=== PATIENT | male | born 1955 | race Caucasian/White ===

== ENCOUNTER 2016-10-10 22:40 | Emergency (ER) | payer MEDICARE, OTHER ==
--- NOTE | ~2016-10-10 | EKG ---
PATIENT: SIVAKUMAR RUBIO UNIT #: [id number] Ventricular Rate: 64 BPM Atrial Rate: 66 BPM P-R Interval: 124 ms QRS Duration: 90 ms Q-T Interval: 400 ms QTC Calculation(Bezet): 412 ms P [place]: 35 degrees Calculated R [place]: 48 degrees Calculated T [place]: 55 degrees Diagnosis Line: Sinus rhythm Baseline wander Diagnosis Line: Otherwise normal ECG Diagnosis Line: When compared with ECG of 15-APR-2016 13:36, Diagnosis Line: Junctional rhythm has replaced Sinus rhythm Diagnosis Line: T wave amplitude has decreased in Anterior leads Diagnosis Line: Confirmed by RUSSELL REYES MD ([id number]) on 10/15/2016 Diagnosis Line: 5:33:56 PM INTERPRETING MD: ERIC FROST
--- NOTE | ~2016-10-10 | CR72 ---
[facility]. [facility] A Service of [facility] RADIOLOGY TEXT RESULTS PATIENT: SIVAKUMAR RUBIO LOCATION: SED : 57 UNIT #: [id number] AGE: [address]: Nuno Barron MD SEX: M ORDER DR: [id number] [place] [id number] E MR#: [id number] Acc #: [id number] NAME: SIVAKUMAR RUBIO : 1955 SEX: M STUDY DATE/TIME: 10/10/2016 23:02 UNIT: SED ROOM: STUDY DESCRIPTION: CR Chest Single View Portable Attending Physician: Nuno Barron M.D. Ordering Physician: Nuno Barron M.D. Primary Care Physician: Francisco Javier Pascual M.D. MEDICAL IMAGING REPORT This report is preliminary unless electronic signature is present. EXAM Portable chest, 10/10 at 23:02 INDICATION Weakness, shortness of air, cough and heart palpitations for 3 days. History of hypertension. COMPARISON 06/07/2013 FINDINGS A single AP portable view of the chest shows both lungs to be clear. The heart is normal in size. The mediastinal contour is normal. No significant bone abnormalities are seen. IMPRESSION Normal portable chest. Dictated by... Ritesh Castaneda Jr., M.D. THIS IS AN ELECTRONICALLY VERIFIED REPORT Ritesh Castaneda Jr., M.D. at 10/11/2016 9:31 PM IRA/morgan TD: 10/11/2016 15:24 JOB #: [id number] MEDICAL IMAGING REPORT
[2016-10-10 22:34] LABS: BASOPHIL% 0.6 % (0-2.5); EOSINOPHIL# 0.3 X10e3 (0-0.7); HEMATOCRIT 39.6 % (38.0-50.0); HEMOGLOBIN 13.2 gm/dL (13.0-16.0); LYMPHOCYTE# 0.7 X10e3 (1.0-3.5); LYMPHOCYTE% 11.8 % (17.0-45.0); MEAN CELL VOLUME 91.3 FL (83-96); MEAN CORPUSCULAR HEMOGLOBIN 30.5 PG (28-34); MEAN CORPUSCULAR HGB CONC 33.4 g/dL (30-36); MEAN PLATELET VOLUME 6.5 FL (6.5-11.5); MONOCYTE# 0.5 X10e3 (0-1.0); MONOCYTE% 8.7 % (3.0-12.0); NEUTROPHIL# 4.5 X10e3 (1.5-7.1); NEUTROPHIL% 73.9 % (40-75); PLATELET COUNT 243 X10e3 (140-420); RED BLOOD COUNT 4.34 X10e (3.90-5.60); WHITE BLOOD COUNT 6.1 X10e3 (4.0-10.5)
[2016-10-10 22:37] LABS: DIFF IND NO
[~2016-10-10 22:40] MED LIST: ALBUTEROL MININEB INH; ALBUTEROL17 GM INH; ANTI-DIARRHEAL2 M1 PO; ASPIRIN EC81 M1 PO; ASPIRIN81 M1 PO; ASPIRIN81 M2 PO; ASPIRIN81 MG; ASPIRIN81 MG PO; ATIVAN; ATIVAN PO; ATIVAN2 M1 PO; ATIVAN2 MG PO; ATORVASTATIN CA80 MG PO; ATROVENT15 ML; CALCIUM CITRAT250 MG PO; CIPRO PO; CLARITIN10 MG; CLARITIN10 MG PO; CLOPIDOGREL BIS75 MG PO; CLOPIDOGREL75 MG PO; FLAGYL PO; FLONASE 0.05% N16 G1; FLONASE16 GM; HCTZ; IMDUR-ER30 MG PO; K-DUR20 ME1 PO; KCL PO; KLONOPIN1 M1 PO; KLONOPIN1 MG; KLONOPIN1 MG PO; LANSOPRAZOLE30 M2 PO; LEVAQUIN PO; LIPITOR80 MG PO; NASONEX17 GM; PAXIL PO; PEPCID AC20 M2 PO; PHENERGAN25 MG PO; PREVACID PO; PRILOSEC PO; PRILOSEC20 MG PO; PROAIR HFA8.5 GM; PROPRANOLOL HCL10 MG PO; PROPRANOLOL PO; RANITIDINE HCL150 M1 PO; REGLAN10 MG PO; SKELAXIN PO; SPIRIVA18 MCG; SPIRIVA18 MCG INH; TAGAMET; TOPAMAX; TOPAMAX PO; TOPAMAX25 MG; TOPAMAX25 MG PO; ULTRAM PO; ZESTRIL10 M2 PO
[2016-10-10 22:41] LABS: POC - CKMB 3.8 ng/mL (0.0-7.9); POC - TROPONIN <0.05 ng/mL (<=0.05)
[2016-10-10 22:44] LABS: INR 1.1; PROTHROMBIN TIME (PATIENT) 12.4 SECONDS (9.5-12.4)
[2016-10-10 22:53] LABS: ALBUMIN SERUM 4.3 g/dL (3.5-5.0); BILIRUBIN, DIRECT 0.1 mg/dL (0.0-0.2); BILIRUBIN,INDIRECT 0.2 mg/dL (0.0-0.9); BILIRUBIN,TOTAL 0.3 mg/dL (0.2-2.0); CREATININE SERUM 1.3 mg/dL (0.6-1.4); GLOM FILT RATE Estimated 59.8 mL/min (>60); MAGNESIUM 1.7 mg/dL (1.6-3.0); POTASSIUM 3.8 mmol/L (3.5-5.1); PROTEIN TOTAL SERUM 7.4 g/dL (6.0-8.3)
== END 2016-10-11 00:53 | disposition home or self-care (01) ==
LOC: SED 22:40
PROVIDERS: Emergency Medicine
DX: K52.9 Noninfective gastroenteritis and colitis, unspecified (principal); E86.0 Dehydration; J44.9 Chronic obstructive pulmonary disease, unspecified; F41.9 Anxiety disorder, unspecified; F43.10 Post-traumatic stress disorder, unspecified
CPT/HCPCS: 36415; 71010; 80048; 80076; 82553; 83735; 83874; 84443; 84484; 85025; 85610; 85730; 93005; 99283; J2930

== ENCOUNTER → 2016-10-26 | Outpatient (CLI) | payer MEDICARE, OTHER ==
[2016-10-26 11:42] LABS: HEMATOCRIT 40.7 % (38.0-50.0); HEMOGLOBIN 13.5 gm/dL (13.0-16.0); MEAN CELL VOLUME 92.6 FL (83-96); MEAN CORPUSCULAR HEMOGLOBIN 30.6 PG (28-34); MEAN CORPUSCULAR HGB CONC 33.1 g/dL (30-36); MEAN PLATELET VOLUME 6.7 FL (6.5-11.5); RED BLOOD COUNT 4.4 X10e (3.90-5.60); RED CELL DISTRIBUTION WIDTH 14.2 % (11.0-15.5); WHITE BLOOD COUNT 4.6 X10e3 (4.0-10.5)
[2016-10-26 12:07] LABS: BLOOD UREA NITROGEN 17 mg/dL (9-23); BUN/CREATININE RATIO 14.16; CALCIUM SERUM 8.8 mg/dL (8.4-10.2); CARBON DIOXIDE 24 mmol/L (22-31); CHLORIDE 103 mmol/L (100-111); CREATININE SERUM 1.2 mg/dL (0.6-1.4); GLOM FILT RATE Estimated ABOVE60 mL/min (>60); GLUCOSE FASTING 80 mg/dL (70-110); POTASSIUM 3.6 mmol/L (3.5-5.1); SODIUM 134 mmol/L (135-145)
[2016-10-26 12:34] LABS: URINE APPEARANCE CLEAR; URINE BILIRUBIN NEG (NEG); URINE BLOOD NEG (NEG); URINE COLOR YELLOW; URINE GLUCOSE NEG (NORM); URINE KETONE NEG (NEG); URINE LEUKOCYTE ESTERASE NEG (NEG); URINE NITRATE NEG (NEG); URINE PH 5.5 (5-8); URINE PROTEIN NEG (NEG); URINE SPECIFIC GRAVITY 1.025 (1.003-1.035); URINE UROBILINOGEN 0.2 MG/DL (NORM)
[2016-10-26 12:38] LABS: MICRO INDICATED? NO
[2016-10-26 14:49] LABS: IRON SERUM 76 ug/dL (45-182); TOTAL IRON BINDING CAPACITY 250 ug/dL (252-460); TRANSFERRIN 179 mg/dL (180-329); TRANSFERRIN SATURATION 30 % (20-50)
[2016-10-26 14:57] LABS: CREATININE,RANDOM URINE 174 mg/dL; TOTAL PROTEIN,RANDOM URINE 36 mg/dl (<10)
== END | disposition home or self-care (01) ==
LOC: SLAB 11:10
PROVIDERS: Internal Medicine Nephrology
DX: N18.3 Chronic kidney disease, stage 3 (moderate) (principal)
CPT/HCPCS: 36415; 80048; 81003; 82570; 83540; 83550; 84156; 85027

== ENCOUNTER 2016-11-01 14:25 | Emergency (ER) | payer MEDICARE, OTHER ==
--- NOTE | ~2016-11-01 | CT4 ---
[facility] A Service of [facility] RADIOLOGY TEXT RESULTS PATIENT: SIVAKUMAR RUBIO LOCATION: SED : 57 UNIT #: [id number] AGE: [address]: Jose Alberto Flood MD SEX: M ORDER DR: [id number] [place] [id number] E MR#: [id number] Acc #: [id number] NAME: SIVAKUMAR RUBIO. : 1955 SEX: M STUDY DATE/TIME: 11/01/2016 15:18 UNIT: SED ROOM: STUDY DESCRIPTION: CT Abd and Pelv Wo Cont Attending Physician: Jose Alberto Flood M.D. Ordering Physician: Jose Alberto Flood M.D. Primary Care Physician: Francisco Javier Pascual M.D. MEDICAL IMAGING REPORT This report is preliminary unless electronic signature is present. EXAM CT abdomen and pelvis without contrast HISTORY 61-year-old male diffuse abdominal pain, diagnosed with colitis, 10/11/2016. Patient awaiting appointment now is out of [facility]. COMPARISON: CT abdomen and pelvis 09/02/[address] exam was performed with one or more of the following radiation dose reduction techniques: automatic exposure control, adjustment of mA and/or kV according to patient size, and iterative reconstruction. FINDINGS Axial images performed through the abdomen and pelvis without contrast. By report the patient is allergic to IV contrast. Multiplanar reconstructed images reviewed a workstation. Lung bases unremarkable except for a small granuloma left lower lobe. The liver, spleen appear normal. The gallbladder is not visualized and may be surgically absent. Pancreas and adrenal glands unremarkable. There is a right renal cortical atrophy. No mass or obstruction. No stone disease. Stomach, small bowel and colon unremarkable. No free air or free fluid. Small amount residual positive contrast noted in the appendix which appears normal. Retroperitoneum unremarkable. PELVIS: The bladder, prostate unremarkable. Osseous structures and soft tissues appear normal. 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 IMPRESSION [facility] A Service of [facility] RADIOLOGY TEXT RESULTS PATIENT: SIVAKUMAR RUBIO LOCATION: SED : 57 UNIT #: [id number] AGE: [address]: Jose Alberto Flood MD SEX: M ORDER DR: 1. No acute intraabdominal or intrapelvic pathology identified. In particular no findings to suggest active colitis. 2. Right renal cortical atrophy unchanged from prior studies. Dictated by... Ludwig Au M.D. THIS IS AN ELECTRONICALLY VERIFIED REPORT Ludwig Au M.D. at 11/02/2016 10:05 AM Kat TD: 11/02/2016 07:35 JOB #: [id number] MEDICAL IMAGING REPORT Page 1 of 1
--- NOTE | ~2016-11-01 | EKG ---
PATIENT: SIVAKUMAR RUBIO UNIT #: [id number] Ventricular Rate: 57 BPM Atrial Rate: 57 BPM P-R Interval: 128 ms QRS Duration: 96 ms Q-T Interval: 406 ms QTC Calculation(Bezet): 395 ms P [place]: 35 degrees Calculated R [place]: 55 degrees Calculated T [place]: 56 degrees Diagnosis Line: Sinus bradycardia Diagnosis Line: Otherwise normal ECG Diagnosis Line: When compared with ECG of 10-OCT-2016 22:26, Diagnosis Line: No significant change was found Diagnosis Line: Confirmed by RUSSELL REYES MD ([id number]) on 11/02/2016 Diagnosis Line: 11:12:37 PM INTERPRETING MD: ERIC FROST
[2016-11-01 15:15] LABS: BASOPHIL% 0.6 % (0-2.5); EOSINOPHIL# 0.4 X10e3 (0-0.7); EOSINOPHIL% 6.9 % (0.0-7.0); HEMATOCRIT 42.5 % (38.0-50.0); HEMOGLOBIN 14.4 gm/dL (13.0-16.0); LYMPHOCYTE# 1.1 X10e3 (1.0-3.5); LYMPHOCYTE% 19.2 % (17.0-45.0); MEAN CELL VOLUME 92.2 FL (83-96); MEAN CORPUSCULAR HEMOGLOBIN 31.2 PG (28-34); MEAN CORPUSCULAR HGB CONC 33.8 g/dL (30-36); MEAN PLATELET VOLUME 7.3 FL (6.5-11.5); MONOCYTE# 0.6 X10e3 (0-1.0); MONOCYTE% 11.6 % (3.0-12.0); NEUTROPHIL# 3.4 X10e3 (1.5-7.1); NEUTROPHIL% 61.7 % (40-75); PLATELET COUNT 248 X10e3 (140-420); RED BLOOD COUNT 4.61 X10e (3.90-5.60); RED CELL DISTRIBUTION WIDTH 13.7 % (11.0-15.5); WHITE BLOOD COUNT 5.5 X10e3 (4.0-10.5)
[2016-11-01 15:24] LABS: DIFF IND NO
[2016-11-01 15:26] LABS: ALBUMIN SERUM 4.2 g/dL (3.5-5.0); BILIRUBIN, DIRECT 0.1 mg/dL (0.0-0.2); BILIRUBIN,INDIRECT 0.4 mg/dL (0.0-0.9); BILIRUBIN,TOTAL 0.5 mg/dL (0.2-2.0); BUN/CREATININE RATIO 18.88; CALCIUM SERUM 9.3 mg/dL (8.4-10.2); CREATININE SERUM 1.8 mg/dL (0.6-1.4); POTASSIUM 3.6 mmol/L (3.5-5.1); PROTEIN TOTAL SERUM 8.3 g/dL (6.0-8.3)
[2016-11-01 16:01] LABS: URINE SOURCE CLEAN CATCH
[2016-11-01 16:02] LABS: URINE APPEARANCE CLEAR; URINE BILIRUBIN NEG (NEG); URINE BLOOD NEG (NEG); URINE COLOR YELLOW; URINE GLUCOSE NEG (NORM); URINE KETONE NEG (NEG); URINE LEUKOCYTE ESTERASE NEG (NEG); URINE NITRATE NEG (NEG); URINE PROTEIN 1+ (NEG); URINE SPECIFIC GRAVITY 1.025 (1.003-1.035); URINE UROBILINOGEN 0.2 MG/DL (NORM)
[2016-11-01 16:32] LABS: CULTURE INDICATED? NO; MICRO INDICATED? YES; URINE BACTERIA NEG (NEG); URINE RBC 0-2 /[HPF] (0-2); URINE WBC 0-2 /[HPF] (0-5)
== END 2016-11-01 19:48 | disposition home or self-care (01) ==
LOC: SED 14:25
PROVIDERS: Emergency Medicine
DX: R10.84 Generalized abdominal pain (principal); N28.9 Disorder of kidney and ureter, unspecified; R19.7 Diarrhea, unspecified; K21.9 Gastro-esophageal reflux disease without esophagitis; J44.9 Chronic obstructive pulmonary disease, unspecified; F17.200 Nicotine dependence, unspecified, uncomplicated; Z98.890 Other specified postprocedural states; Z88.5 Allergy status to narcotic agent; Z88.8 Allergy status to other drugs, medicaments and biological substances; Z91.040 Latex allergy status; Z79.899 Other long term (current) drug therapy
CPT/HCPCS: 36415; 74176; 80048; 80076; 81003; 83690; 85025; 93005; 96361; 96365; 96375; 99284; J1610; J2405